=== PATIENT | female | born 1945 | race Caucasian/White ===

== ENCOUNTER 2018-09-10 14:12 | Emergency (ER) | payer OTHER, MEDICAID ==
[~2018-09-10] VITALS: Ht 172.7 cm; Wt 79.8 kg
[2018-09-10] MEDS ORDERED: LANTUS100 UNIT/M SUBQ (14:17)
[2018-09-10] MEDS ORDERED: GLUCAGON EMERGEN1 MG IM (14:17)
[2018-09-10] MEDS ORDERED: CELEXA10 MG PO (14:18)
[2018-09-10] MEDS ORDERED: SINEMET 10-1001 EAC1 PO (14:18)
[2018-09-10] MEDS ORDERED: COMBIGAN EYE DR10 ML OPHTHALMIC (14:20)
[2018-09-10] MEDS ORDERED: CLONAZEPAM 0.50.5 M1 PO (14:20)
[2018-09-10] MEDS ORDERED: ARICEPT10 M1 PO (14:21)
[2018-09-10] MEDS ORDERED: PEPCID20 MG PO (14:21)
[2018-09-10] MEDS ORDERED: LATANOPROST 0.2.5 ML OPHTHALMIC (14:22)
[2018-09-10] MEDS ORDERED: OXYBUTYNIN 5 MG5 M2 PO (14:22)
[2018-09-10] MEDS ORDERED: OYSCO-500500 MG PO (14:22)
[2018-09-10] MEDS ORDERED: PRAVACHOL40 MG PO (14:23)
[2018-09-10] MEDS ORDERED: NORCO 5-325 TA1 EACH PO (14:24)
[2018-09-10] MEDS ORDERED: MELATONIN3 MG PO (14:24)
[2018-09-10] MEDS ORDERED: VITAMIN D1000 UNI1 PO (14:24)
[2018-09-10] MEDS ORDERED: HUMALOG100 UNIT/1 SUBQ (14:25)
[2018-09-10] MEDS ORDERED: ONDANSETRON HCL4 M2 PO (14:25)
[2018-09-10] MEDS ORDERED: NOVOLOG100 UNIT/1 SUBQ (14:26)
[2018-09-10 14:46] LABS: HEMATOCRIT 37.8 % (37.0-47.0); HEMOGLOBIN 12.9 gm/dL (12.0-15.0); MCH 33.5 pg (26.0-34.0); MCHC 34.2 g/dL (28.0-37.0); MCV 97.8 fL (80.0-100.0); MPV 8.8 fl. (7.2-11.1); NUCLEATED RBCS 0 /100WBC; PLATELET COUNT* 228 thou/uL (150-400); RBC 3.87 mil/uL (4.20-5.00); RDW-CV 13.8 % (10.5-14.5); WBC 10.9 thou/uL (4.0-11.0)
[2018-09-10 14:51] LABS: APTT 26.5 Seconds (25.0-31.3); INR 1.1; PROTIME 11.1 Seconds (9.20-11.50)
[2018-09-10 14:59] LABS: ANION GAP 14 mmol/L (7-16); BUN 15 mg/dL (7-18); CALCIUM 9.5 mg/dL (8.5-10.1); CHLORIDE 97 mmol/L (98-107); CO2 24 mmol/L (21-32); GLUCOSE 333 mg/dL (70-99); POTASSIUM 3.7 mmol/L (3.5-5.1); SODIUM 135 mmol/L (136-145); TROPONIN-I LEVEL <0.06 ng/mL (<0.06)
[2018-09-10 15:01] LABS: ALBUMIN 3.1 g/dL (3.4-5.0); ALKALINE PHOSPHATASE 115 U/L (46-116); NT-PRO BRAIN NAT PEPTIDE 257 pg/mL (<300); SGOT 17 U/L (15-37); SGPT 13 U/L (30-65); TOTAL BILIRUBIN 0.7 mg/dL (<0.1-1.0); TOTAL PROTEIN 8.5 g/dL (6.4-8.2)
[2018-09-10 15:37] LABS: ABSOLUTE LYMPHOCYTES 0.9 thou/uL (0.8-5.3); ABSOLUTE MONOCYTES 0.3 thou/uL (0.0-1.2); ABSOLUTE NEUTROPHILS 9.7 thou/uL (1.6-8.1)
[2018-09-10 15:39] LABS: LARGE PLATELETS OCCASIONAL; PLATELET ESTIMATE ADEQUATE; POLYCHROMASIA Occasional
[2018-09-10 17:06] VITALS: BP 124/75
--- NOTE | 2018-09-11 11:34 | EKG ---
[place] [address] ELECTROCARDIOGRAM REPORT Name: ALAN WAYLIBECKIE Vance Room: [facility]#: [id number] Admission: 09/10/18 Attend Phys: Discharge: 09/10/18 Date of : 43 Report #: [id number] THIS REPORT FOR: //name// [facility] Test Date: 2018-09-10 Test Time: 14:39:04 Pat Name: PADILLA WAY Department: Room: Gender: F Stock Selector: : 1945 Requested By: Jace Law Order Number: [id number] MD: Romie Dale Measurements Intervals [place] Rate: 109 P: VA: QRS: -20 QRSD: 96 T: 15 QT: 337 QTc: 454 Interpretive Statements Atrial flutter Borderline left axis deviation Abnormal R-wave progression, late transition Borderline repolarization abnormality No previous ECG available for comparison Electronically Signed On 09-11-2018 11:33:53 CDT by Romie Dale [email or web address] <ELECTRONICALLY SIGNED> By: Romie Dale MD, [facility] 09/11/18 1133 1439 1439 Romie Dale MD, FACC /EPI
== END 2018-09-10 17:09 | disposition home or self-care (01) ==
LOC: M.ERS 14:12
PROVIDERS: Emergency Medicine Emergency Medical Services
DX: S01.411A Laceration without foreign body of right cheek and temporomandibular area, initial encounter (principal); W19.XXXA Unspecified fall, initial encounter; Y93.89 Activity, other specified; Y92.89 Other specified places as the place of occurrence of the external cause; Y99.8 Other external cause status

== ENCOUNTER 2019-04-08 14:50 | Inpatient (IN) | payer OTHER, MEDICAID ==
[~2019-04-08] VITALS: Ht 157.5 cm; Wt 79.2 kg
[~2019-04-08 14:50] MED LIST: ARICEPT10 M1 PO; CELEXA20 MG PO; CLONAZEPAM 0.50.5 M1 PO; COMBIGAN EYE DR10 ML OPHTHALMIC; GLUCAGON EMERGEN1 MG IM; HUMALOG100 UNIT/1 SUBQ; LANTUS100 UNIT/M SUBQ; LATANOPROST 0.2.5 ML OPHTHALMIC; MELATONIN3 MG PO; NORCO 5-325 TA1 EACH PO; NOVOLOG100 UNIT/1 SUBQ; ONDANSETRON HCL4 M2 PO; OXYBUTYNIN 5 MG5 M2 PO; OYSCO-500500 MG PO; PEPCID20 MG PO; PRAVACHOL40 MG PO; SINEMET 10-1001 EAC1 PO; VITAMIN D1000 UNI1 PO
[2019-04-08 14:53] VITALS: BP 166/65
[2019-04-08] MEDS ORDERED: GLUCERNA237 M1 PO (14:56)
[2019-04-08 15:28] LABS: ABSOLUTE LYMPHOCYTES 1.3 thou/uL (0.8-5.3); ABSOLUTE MONOCYTES 0.3 thou/uL (0.0-1.2); ABSOLUTE NEUTROPHILS 6.1 thou/uL (1.6-8.1); BASOPHILS 0.1 %; HEMATOCRIT 34.2 % (37.0-47.0); HEMOGLOBIN 11.9 gm/dL (12.0-15.0); LYMPHOCYTES 17.1 %; MCH 33.7 pg (26.0-34.0); MCHC 34.9 g/dL (28.0-37.0); MCV 96.6 fL (80.0-100.0); MONOCYTES 4.2 %; MPV 8.8 fl. (7.2-11.1); NUCLEATED RBCS 0 /100WBC; PLATELET COUNT* 192 thou/uL (150-400); POLYS 78.6 %; RBC 3.54 mil/uL (4.20-5.00); RDW-CV 14.2 % (10.5-14.5); WBC 7.8 thou/uL (4.0-11.0)
[2019-04-08 15:32] LABS: ANION GAP 12 mmol/L (7-16); BUN 12 mg/dL (7-18); CALCIUM 9.3 mg/dL (8.5-10.1); CHLORIDE 95 mmol/L (98-107); CO2 26 mmol/L (21-32); CREATININE 0.9 mg/dL (0.6-1.3); GLUCOSE 188 mg/dL (70-99); POTASSIUM 3.5 mmol/L (3.5-5.1); SODIUM 133 mmol/L (136-145)
[2019-04-08 15:42] LABS: ALBUMIN 3.1 g/dL (3.4-5.0); ALKALINE PHOSPHATASE 87 U/L (46-116); MAGNESIUM 1.3 mg/dL (1.8-2.4); SGOT 18 U/L (15-37); SGPT 15 U/L (30-65); TOTAL BILIRUBIN 0.4 mg/dL (<0.1-1.0); TOTAL PROTEIN 8.5 g/dL (6.4-8.2); TROPONIN-I LEVEL <0.06 ng/mL (<0.06)
[2019-04-08 16:00] LABS: URINE BILIRUBIN NEGATIVE (Negative); URINE BLOOD 2+ (Negative); URINE CLARITY CLEAR; URINE COLOR YELLOW; URINE GLUCOSE-RANDOM 3+ (Negative); URINE KETONES TRACE (Negative); URINE LEUKOCYTES-REFLEX TRACE (Negative); URINE NITRITE-REFLEX NEGATIVE (Negative); URINE PROTEIN 2+ (Negative); URINE SPECIFIC GRAVITY 1.025 (1.005-1.030); URINE UROBILINOGEN 0.2 E.U./dl (0.2-1.0)
[2019-04-08 16:06] LABS: BACTERIA-REFLEX >30 Many /HPF (None Seen); CASTS None Seen /LPF (None Seen); CRYSTALS None Seen /LPF (None Seen); SQUAMOUS 4-10 Moderate /LPF (0-3); URINE RBC >20 Many /HPF (0-2); URINE WBC-REFLEX >25 Many /HPF (0-5)
[2019-04-08 16:33] LABS: BE 4.4 mmol/L (-2 to +3); PCO2 38.5 mmHg (35.0-45.0); pH 7.481 (7.340-7.450)
[2019-04-08 16:36] LABS: PO2 58.7 mmHg (75.0-100.0)
--- NOTE | 2019-04-08 16:39 | NUR ---
ARACELI NOTIFIED UPON PT RETURN FROM CT. PT CONNECTED TO MONITOR AND O2
[2019-04-08 19:40] VITALS: BP 98/44
[2019-04-08 22:00] VITALS: BP 104/35
[2019-04-08 23:45] VITALS: BP 104/42
[2019-04-09 04:00] VITALS: BP 108/44
[2019-04-09 05:10] LABS: HEMATOCRIT 28.4 % (37.0-47.0); MCH 33.1 pg (26.0-34.0); MCHC 33.9 g/dL (28.0-37.0); MCV 97.5 fL (80.0-100.0); MPV 8.5 fl. (7.2-11.1); RBC 2.91 mil/uL (4.20-5.00); RDW-CV 14.1 % (10.5-14.5); WBC 6.8 thou/uL (4.0-11.0)
[2019-04-09 05:12] LABS: HEMOGLOBIN 9.6 gm/dL (12.0-15.0)
[2019-04-09 05:24] LABS: ALBUMIN 2.3 g/dL (3.4-5.0); CALCIUM 8.3 mg/dL (8.5-10.1); CREATININE 0.7 mg/dL (0.6-1.3); POTASSIUM 3.3 mmol/L (3.5-5.1); TOTAL BILIRUBIN 0.2 mg/dL (<0.1-1.0); TOTAL PROTEIN 6.6 g/dL (6.4-8.2); TROPONIN-I LEVEL 0.08 ng/mL (<0.06)
--- NOTE | 2019-04-09 06:16 | NUR ---
RECEIVED REPORT FROM TURBINE OPERATORAKIRA TAO AT 1934. PT ARRIVED TO UNIT VIA CART AT 1999. PT AAOX1, ORIENTED TO ROOM AND CALL LIGHT. VVS, SOLUTION ADVISOR IN PLACE, TRACING SR. HIGH FALL PRECAUTIONS IN PLACE, NEGATIVE SEPSIS SCREENING THIS SHIFT. CALL LIGHT WITHIN REACH.
[2019-04-09 08:00] VITALS: BP 109/45
--- NOTE | 2019-04-09 08:00 | NUR ---
ASSUSMED PT CARE AROUND 0700. PT WAS NOTED TO BE RESTING ON BED WITH BOTH EYES OPEN. PT A/OX2. VSS, SR ON THE MONITOR. DENIES ANY PAIN. WILL CONT HOURLY ROUNDS THIS SHIFT.
--- NOTE | 2019-04-09 11:02 | 2DMMODE ---
[place] [address] 2 D/M-MODE ECHOCARDIOGRAM Name: SEAMUSPADILLA Room: [address] [place] [facility]#: [id number] Admission: 04/08/19 Attend Phys: Alee Singh, Discharge: Date of : 43 Date of Service: 04/09/19 1102 Report #: [id number] THIS REPORT FOR: //name// APPROVED REPORT Study performed: 04/09/2019 09:29:18 EXAM: Comprehensive 2D, Doppler, and color-flow Echocardiogram Patient Location: In-Patient Room #: [facility] Status: routine BSA: 1.79 HR: 82 bpm BP: 108/44 mmHg Rhythm: NSR Other Information Study Quality: Good Indications Elevated Troponin 2D Dimensions IVSd: 9.76 (7-11mm) LVOT Diam: 18.24 (18-24mm) LVDd: 46.02 mm PWd: 9.79 (7-11mm) Ascending Ao: 28.76 (22-36mm) LVDs: 23.31 (25-40mm) Aortic Root: 29.29 mm Volumes Left Atrial Volume (Systole) LA ESV Index: 19.10 mL/m2 Aortic Valve AoV Peak Bernardo.: 1.59 m/s AO Peak Gr.: 10.10 mmHg LVOT Max P.71 mmHg AO Mean Gr.: 5.47 mmHg LVOT Mean P.39 mmHg LVOT Max V: 0.82 m/s AO V2 VTI: 31.02 cm LVOT Mean V: 0.54 m/s JUSTIN (VTI): 1.50 cm2 LVOT V1 VTI: 17.84 cm Mitral Valve E/A Ratio: 1.03 MV Decel. Time: 165.76 ms MV E Max Bernardo.: 1.06 m/[place] [address] 2 D/M-MODE ECHOCARDIOGRAM Name: PADILLA WAY Room: [address] [place] .R.#: [id number] Admission: 04/08/19 Attend Phys: Alee Singh, Discharge: Date of : 43 Date of Service: 04/09/19 1102 Report #: [id number] MV PHT: 48.07 ms MVA (PHT): 4.58 cm2 TDI E/Lateral E': 11.78 E/Medial E': 10.60 Medial E' Bernardo.: 0.10 m/s Lateral E' Bernardo.: 0.09 m/s Pulmonary Valve PV Peak Bernardo.: 0.84 m/s PV Peak Gr.: 2.84 mmHg Tricuspid Valve RAP Estimate: 5.00 mmHg TR Peak Gr.: 28.14 mmHg RVSP: 33.00 mmHg PA Pressure: 33.00 mmHg Left Ventricle The left ventricle is normal size. There is normal LV segmental wall motion. There is normal left ventricular wall thickness. Left ventricular systolic function is normal. LVEF is 60-65%. Transmitral Doppler flow pattern suggests impaired LV relaxation. Right Ventricle The right ventricle is normal size. The right ventricular systolic function is normal. Atria The left atrium size is normal. The right atrium size is normal. Aortic Valve Mild aortic valve sclerosis. No aortic regurgitation is present. Mild aortic stenosis. Mitral Valve The mitral valve is normal in structure. There is no mitral valve regurgitation noted. No evidence of mitral valve stenosis. Tricuspid Valve The tricuspid valve is normal in structure. Trace tricuspid regurgitation. Mild pulmonary hypertension. Pulmonic Valve The pulmonary valve is normal in structure. There is no pulmonic [place]vular [place] [address] 2 D/M-MODE ECHOCARDIOGRAM Name: PADILLA WAY Room: [address] [place] [facility]#: [id number] Admission: 04/08/19 Attend Phys: Alee Singh, Discharge: Date of : 43 Date of Service: 04/09/19 1102 Report #: [id number] Great Vessels The aortic root is normal in size. IVC is normal in size and collapses >50% with inspiration. Pericardium There is no pericardial effusion. <Conclusion> The left ventricle is normal size. There is normal left ventricular wall thickness. Left ventricular systolic function is normal. LVEF is 60-65%. Transmitral Doppler flow pattern suggests impaired LV relaxation. Mild aortic valve sclerosis. Mild aortic stenosis. Trace tricuspid regurgitation. Mild pulmonary hypertension. IVC is normal in size and collapses >50% with inspiration. <ELECTRONICALLY SIGNED> By: Romie Dale MD, FACC 04/09/19 1102 01 01 Romie Dale MD, FACC /INF
--- NOTE | 2019-04-09 11:07 | EKG ---
[place] [address] ELECTROCARDIOGRAM REPORT Name: PADILLA WAY Room: [address] ADM [place] .R.#: [id number] Admission: 04/08/19 Attend Phys: Alee Singh MD Discharge: Date of : 43 Report #: [id number] THIS REPORT FOR: //name// [facility] ED Test Date: 2019-04-08 Test Time: 14:57:24 Pat Name: PADILLA WAY Department: Room: [facility] Gender: F Facility Attendant: : 1945 Requested By: Bharti Rice Order Number: [id number] MD: Romie Dale Measurements Intervals [place] Rate: 117 P: 26 AL: 122 QRS: -26 QRSD: 91 T: 73 QT: 320 QTc: 447 Interpretive Statements Sinus tachycardia Left axis deviation Boderline repolarization abnormality Compared to ECG 09/10/2018 14:39:04 Atrial flutter no longer present Electronically Signed On 04-09-2019 11:07:01 CDT by Romie Dale [email or web address] <ELECTRONICALLY SIGNED> By: Romie Dale MD, FACC 04/09/19 1107 1457 1457 Romie Dale MD, FACC /EPI
[2019-04-09 12:12] VITALS: BP 109/45
--- NOTE | 2019-04-09 14:02 | NUR ---
Pt is A&O. Resides at [facility] and plans to return there at tx. Pt is [place] bound and requires assist with transfers. Supportive . Following.
[2019-04-09 16:15] VITALS: BP 121/47
[2019-04-09 19:30] VITALS: BP 89/53
--- NOTE | 2019-04-09 20:00 | NUR ---
PT HAD A DROP IN BS AROUND 4PM. PT WAS GIVEN OJ ET CRACKERS. RECHECKED 15 MINS ET NOTED TO BE 77. PT ATE MOST HER DINNER. PT HAD A LARGE BM THIS SHIFT. PT HAD STABLE TEMP UNDTIL AROUND 4PM ET TEMP WAS NOTED TO BE 101.2. PT GIVEN 650 MG TYLENOL. TEMP RETURNED TO NORMAL RANGE REMAINS COMPLIANT WITH ALL NURSING CARE.
[2019-04-09 23:53] VITALS: BP 114/59
[2019-04-10 04:00] VITALS: BP 152/69
--- NOTE | 2019-04-10 04:54 | NUR ---
PT ALERT AND ORIENTED. FORGETFUL. ASSESSMENT DOCUMENTED. MEDS GIVEN PER EMAR. PT SLEPT VERY LITTLE THIS SHIFT. PT HAD GAS AND SMEARS SEVERAL TIMES THIS SHIFT. HER RECTUM WAS IRRITATED. BARRIER CREAM APPLIED NEEDED. VICODIN GIVEN X1 THIS SHIFT FOR PAIN AROUND RECTUM. RELIEVE NOTED. BENADRYL ALSO GIVEN X1 THIS SHIFT. NEW IV TO RFA WITH NS @100. PT INCONTINENT OF BOWEL AND BLADDER. CALL LIGHT WITHIN REACH. HOURLY ROUNDINGS MADE. WILL CONTINUE TO MONITOR.
[2019-04-10 05:04] LABS: HEMATOCRIT 28.4 % (37.0-47.0); HEMOGLOBIN 9.7 gm/dL (12.0-15.0); MCH 33.5 pg (26.0-34.0); MCHC 34.3 g/dL (28.0-37.0); MCV 97.5 fL (80.0-100.0); MPV 8.4 fl. (7.2-11.1); RBC 2.91 mil/uL (4.20-5.00); WBC 5.8 thou/uL (4.0-11.0)
[2019-04-10 05:13] LABS: CALCIUM 8.2 mg/dL (8.5-10.1); CREATININE 0.7 mg/dL (0.6-1.3); MAGNESIUM 1.6 mg/dL (1.8-2.4); POTASSIUM 3.5 mmol/L (3.5-5.1)
[2019-04-10 08:00] VITALS: BP 131/60
[2019-04-10 12:00] VITALS: BP 133/60
[2019-04-10 16:00] VITALS: BP 153/63
[2019-04-10 20:00] VITALS: BP 153/63
[2019-04-11 00:39] VITALS: BP 138/62
--- NOTE | 2019-04-11 01:36 | NUR ---
PT HAD SEVERAL SM BMS. VICODEN GIVEN FOR C/O BACK PAIN. BENADRYL GIVEN FOR SLEEP. ALERT ORIENTED TO SELF, PLACE AND SITUATION BUT FORGETFUL AND MAKES INAPPROPRIATE COMMENTS AND NURSERY RHYMES. MED SURG STATUS.
[2019-04-11 04:00] VITALS: BP 112/60
[2019-04-11 07:37] VITALS: BP 132/54
--- NOTE | 2019-04-11 08:47 | NUR ---
ASSUMED CARE OF PT THIS AM AROUND 714- MS STATUS IN PLACE AND MAINTAINED INDICATED- PT A&O X3-4 WITH FORGETFULNESS NOTED- INCONTINENT OF B/B- Q 2HOUR TURNS IN PLACE INDICATED- LCTA, RESP EVEN AND UN-LABORED- VSS, O2 SAT 95% ON RA- ABD SOFT/OBESE/NON-TENDER, BS X4 QUADS- PT REPORTED TO HAVE HAD SMALL SOFT ROUND BM'S LAST HS- IV NOTED TO LEFT FA INTACT AND SL- IV ABT GIVEN THIS AM PRESCIBED- BS MONITORED ORDERED, WITH INSULIN PRESCIBED- PT DENIES ANY C/O PAIN/DISCOMFORT THIS AM- CONCERNED WITH SLEEP THIS AM- CALL LIGHT AND PERSONAL BELONGINGS WITH IN REACH- BED/CHAIR ALARMS IN PLACE INDICATED R/T SAFETY/NEEDS- HOURLY ROUNDS IN PLACE R/T SAFETY/NEEDS- ALL NEEDS MET AT THIS TIME-WCTM
--- NOTE | 2019-04-11 11:56 | NUR ---
OT WILL D/C PT AT THIS TIME, DUE TO LEVEL OF CURRENT CARE AT PT [facility]. PT HAS DC'D PATIENT WELL.
[2019-04-11 16:11] VITALS: BP 137/58
--- NOTE | 2019-04-11 16:33 | NUR ---
PT EVANGELINA RESTING IN BED, WATCHING TV-M/S STATUS IN PLACE AND MAINTAINED INDICATED- FAIR PO INTAKE NOTED THIS SHIFT WITH MEALS- BS MONITORED ORDERED, SCHEDULED INSULIN GIVEN PRESCIBED- AFTERNOON BS NOTED TO BE 134 WITH SCHEDULED INSULIN GIVEN PRESCIBED, BS AT 1545 NOTED TO DROP TO 37 WITH IV DEXTROSE GIVEN AND JUSICE WITH NOTED INCREASE TO 213, HALF DOSE OF SCHEDULED INSULIN GIVEN WITH DINNER THIS SHIFT- Q 2 HOUR TURNS NOTED INDICATED- FREQUENT CHECKS IN PLACE R/T SAFETY/NEEDS- ALL NEEDS MET AT THIS TIME-WCTM
[2019-04-11 20:00] VITALS: BP 164/64
--- NOTE | 2019-04-12 05:45 | NUR ---
ASSUMED PATIENT CARE AT 1900. PATIENT ALERT AND ORIENTED TIMES FOUR, SOME CONFUSION NOTED. BLOOD SUGARS RAN LOW IN THE EVENING D50 GIVEN AND INSULIN HELD. NO COMPLAINTS OF PAIN OR DISCOMFORT. BIODIESEL TECHNOLOGY MANAGER AND HOURLY ROUNDING COMPLETED CHARTED.
[2019-04-12 07:59] VITALS: BP 138/75
--- NOTE | 2019-04-12 09:36 | NUR ---
ASSUMED CARE OF PT THIS AM AROUND 714- MS STATUS IN PLACE INDCIATED- UPON ASSESSMENT PT NOTED TO BE RESTING IN BED- PT A&O X3-4 WITH FORGETFULLNESS- INCONTINENT OF B/B- Q2 HOUR TURNS IN PLACE INDICATED- LCTA, RESP EVEN AND UN-LABORED- VSS, O2 SAT 97% ON RA- ABD SOFT/ROUND/NON-TENDER, BS X4 QUADS- LAST BM REPORTED X2 DAYS AGO- POOR PO INTAKE NOTED, BS MONITORED ORDERED WITH INSULIN PRESCIBED- IV NOTED TO RIGHT FA INTACT AND SL, IV ABT GIVEN THIS AM PRESCIBED- PT DENEIS ANY C/O PAIN/DISCOMFORT AT THIS TIME- CALL LIGHT AND PERSONAL BELONGINGS WITH IN REACH- HOURLY ROUNDS IN PLACE R/T SAFETY/NEEDS- ALL NEEDS MET AT THIS TIME-WCTM
--- NOTE | 2019-04-12 11:41 | NUR ---
PT ARRIVED TO UNIT ABOUT 1135 FROM TELE. IV PATENT. UP WITH 1. PT STABLE. AGREE WITH PREVIOUS ASSESMENT. FALL PRECAUTIONS IN PLACE. WILL CONTINUE TO MONITOR.
--- NOTE | 2019-04-12 11:44 | NUR ---
NASH called [facility] and informed of pt possible to dc home to [facility] tomorrow. SW faxed information to provide updates and continuation of care. Final orders to be faxed to [facility] at pt dc. fax [phone] [facility] ph [phone]
[2019-04-12 15:00] VITALS: BP 167/75
--- NOTE | 2019-04-12 17:41 | NUR ---
PT IS A&Ox2, x3 AT TIMES. VITALS STABLE. MILK OF MAG GIVEN PER PT REQUEST FOR NO BM SINCE 04/10. COMPLAINING OF RECTUM BEING IRRITATED. BOTTOM IS SLIGHTLY RED. UP WITH 1 TO PIVOT TO CAMMODE. ON RA. NO IV, PT DISCONTINUED IT AND DOESN'T WANT ANOTHER DUE TO POSSIBLE DC TOMORROW. FALL PRECAUTIONS IN PLACE. CALL LIGHT WITHIN REACH. WILL CONTINUE TO MONITOR.
[2019-04-12 20:30] VITALS: BP 146/60
--- NOTE | 2019-04-13 04:51 | NUR ---
PT ORIENTED TIMES 2-3, FORGETFUL. MEDS GIVEN ORDERED. BACK PAIN MANAGED BY NORCO. PT DENIED NAUSEA OR VOMITING. HOURLY ROUNDING COMPLETED. WILL CONTINUE TO MONITOR.
[2019-04-13 08:10] VITALS: BP 137/56
--- NOTE | 2019-04-13 13:37 | NUR ---
Following for d/c planning needs. Received order from physician to arrange d/c back to [facility]. Spoke with nurse at [place] and they are able to accept back today. Called [facility] and they will transport between [phone]. Called spouse and he is agreeable with plans to transport. He said he will meet pt at the facility. Faxed orders to facility. Chart copied. No other needs identified,
--- NOTE | 2019-04-13 14:53 | NUR ---
PT WAS EVALUATED BY PT SERVICES ON 04/09/19. PT WAS NOTED TO BE BASELINE STATUS, THEREFORE NO ACUTE PT SERVICES WERE INDICATED. NEW ORDERS RECEIVED 04/12/19. NSG INDICATES NO CHANGE IN PT'S ACUTE MEDICAL STATUS WARRANTING PT RE-EVALUATION. WILL DISCHARGE PT ORDERS.
[2019-04-13 15:30] VITALS: BP 139/64
--- NOTE | 2019-04-13 16:15 | NUR ---
PATIENT DISCHARGED PER WITH STAFF PLASTICS REPAIRER FOR RETURN TO [facility]. REPORT CALLED TO AKIRA PHILIP. NO IV PRESENT. DISCHARGE INFORMATION GIVEN TO STAFF PLASTICS REPAIRER. PATIENT ORIENTED TO PERSON AND SITUATION THIS SHIFT. PATIENT NONCOMPLIANT W/ ACTIVITY THRU SHIFT, STATES SHE WOULD NOT BE GETTING OOB SINCE SHE IS GOING BACK TO [facility]. COOPERATIVE W/ ASSESS. INCONTI OF URINE, ASST W/ GATHERING BELONGINGS AND DRSG PER CASTING MACHINE CONTROL BOARD OPERATOR. HRLY ROUNDS DONE.~TJRN
== END 2019-04-13 16:15 | DRG 871 ==
LOC: M.ERS 14:50 → M.2W 18:22 → M.TBA-ER 18:22 → M.2W 20:17 → M.3W 04-12 11:34
PROVIDERS: Personal Emergency Response Attendant; ADMIT Internal Medicine
DX: A41.9 Sepsis, unspecified organism (principal); G92 Toxic encephalopathy; J96.01 Acute respiratory failure with hypoxia; N39.0 Urinary tract infection, site not specified; F03.90 Unspecified dementia, unspecified severity, without behavioral disturbance, psychotic disturbance, mood disturbance, and anxiety; E11.9 Type 2 diabetes mellitus without complications; G20 Parkinson's disease; E87.6 Hypokalemia; E78.5 Hyperlipidemia, unspecified; F41.9 Anxiety disorder, unspecified; K21.9 Gastro-esophageal reflux disease without esophagitis; Z79.899 Other long term (current) drug therapy